=== PATIENT | male | born 1995 | race Caucasian/White ===

== ENCOUNTER 2022-02-06 05:02 | Emergency (ER) | payer BC, MEDICAID ==
[2022-02-06 05:03] VITALS: BP_SYST 150
[2022-02-06] MEDS ORDERED: PHENYTOIN SODIUM INJ 1,000 MG in NS 100 ML IV ONE (05:15)
[2022-02-06] MEDS ORDERED: DIPHENHYDRAMINE INJ 50 MG/ML VIAL IVP ONE (05:15)
[2022-02-06] MEDS ORDERED: levETIRAcetam 1,000 MG IV BAG 100 ML IV ONE (05:15)
[2022-02-06] MEDS ORDERED: LORazepam 2 MG/ML VIAL IVP ONE (05:15)
[2022-02-06] MEDS ORDERED: PHENYTOIN SODIUM 250 MG/5 ML INJ. VIAL IV ONE (05:23)
[2022-02-06 09:46] VITALS: BP_SYST 150
== END 2022-02-06 09:41 | disposition left against medical advice (07) ==
LOC: SED 05:02
DX: R56.9 Unspecified convulsions (principal)
CPT/HCPCS: 96365; 96375; 99284; J1165; J1200; J1953